=== PATIENT | female | born 1965 | race Caucasian/White ===

== ENCOUNTER → 2018-04-17 | Outpatient (CLI) | payer OTHER ==
[~2018-04-17] MED LIST: ADULT LOW DOSE81 MG PO; CENTRUM COMPLE1 EACH PO; GLUCOPHAGE1000 MG PO; LISINOPRIL-HCT1 EAC2 PO; PRAVASTATIN SOD10 MG PO
== END ==
LOC: M.RAD 03-31 14:00
DX: Z12.31 Encounter for screening mammogram for malignant neoplasm of breast (principal)

== ENCOUNTER → 2019-04-13 | Outpatient (CLI) | payer OTHER | LOC: M.RAD 13:46 | DX: Z12.31 Encounter for screening mammogram for malignant neoplasm of breast (principal) ==

== ENCOUNTER → 2020-05-08 | Outpatient (CLI) | payer OTHER | LOC: M.RAD 05-04 10:30 | PROVIDERS: ATTEND Family Medicine | DX: Z12.31 Encounter for screening mammogram for malignant neoplasm of breast (principal); N60.82 Other benign mammary dysplasias of left breast; N60.81 Other benign mammary dysplasias of right breast ==

== ENCOUNTER → 2021-05-08 | Outpatient (CLI) | payer OTHER | LOC: M.RAD 07:47 | PROVIDERS: ATTEND Family Medicine | DX: Z12.31 Encounter for screening mammogram for malignant neoplasm of breast (principal); N64.89 Other specified disorders of breast ==